=== PATIENT | female | born 1945 | race Caucasian/White ===

== ENCOUNTER 2016-08-22 00:10 | Emergency (ER) | payer MEDICARE ==
[~2016-08-22] VITALS: Ht 160 cm; Wt 70.2 kg
[2016-08-22] MEDS ORDERED: LOSARTAN POT50 MG PO (00:59)
[2016-08-22] MEDS ORDERED: FISH OIL1000 MG PO (01:00)
[2016-08-22] MEDS ORDERED: CELEXA20 M1 PO (01:00)
[2016-08-22] MEDS ORDERED: HYDROCHLOROT12.5 MG PO (01:01)
[2016-08-22] MEDS ORDERED: ASPIRIN EC325 MG PO (01:01)
[2016-08-22] MEDS ORDERED: ATORVASTATIN CA20 MG PO (01:02)
[2016-08-22 01:35] VITALS: BP 192/105
== END 2016-08-22 01:35 | disposition home or self-care (01) ==
LOC: ED 00:10
DX: H57.12 Ocular pain, left eye (principal); I10 Essential (primary) hypertension; E78.5 Hyperlipidemia, unspecified